=== PATIENT | female | born 1970 | race Caucasian/White ===

== ENCOUNTER 2021-05-04 12:23 | Emergency (ER) | payer MEDICAID ==
[~2021-05-04] VITALS: Ht 167.6 cm; Wt 109.0 kg
[~2021-05-04 12:23] MED LIST: OMEP20TA5 PO
[2021-05-04 12:25] VITALS: BP 169/78
== END 2021-05-04 15:38 | disposition home or self-care (01) ==
LOC: ER 12:24
DX: T18.9XXA Foreign body of alimentary tract, part unspecified, initial encounter (principal); R11.0 Nausea; Z79.899 Other long term (current) drug therapy; X58.XXXA Exposure to other specified factors, initial encounter; Y93.89 Activity, other specified; Y92.89 Other specified places as the place of occurrence of the external cause; Y99.8 Other external cause status
CPT/HCPCS: 74018; 99284